=== PATIENT | female | born 1960 | race Caucasian/White ===

== ENCOUNTER → 2016-12-27 | Outpatient (CLI) | payer OTHER ==
[~2016-12-27] MED LIST: BUPIVACAINE 0.25% 30 ML SDV ONE
== END ==
LOC: FIMAGING 08:36
PROVIDERS: ATTEND Radiology Diagnostic Radiology
PROC: 3E023GC Introduction of Other Therapeutic Substance into Muscle, Percutaneous Approach (ICD-10-PCS; principal; 2016-12-27)
DX: M76.62 Achilles tendinitis, left leg (principal)

== ENCOUNTER → 2017-07-11 | Outpatient (CLI) | payer BC | LOC: BMCIMAGING 10:01 | PROVIDERS: ATTEND Obstetrics & Gynecology | DX: Z03.89 Encounter for observation for other suspected diseases and conditions ruled out (principal) | CPT/HCPCS: G0204 ==

== ENCOUNTER 2017-09-21 08:12 | Emergency (ER) | payer BC ==
[2017-09-21 08:17] VITALS: RESP 18
--- NOTE | 2017-09-21 08:30 | EDPHY ---
H & P Stated Complaint: cut middle left finger at 0715. Time Seen by Provider: 09/21/17 08:22 HPI/ROS: CHIEF COMPLAINT: Finger laceration HISTORY OF PRESENT ILLNESS: Patient is a 57-year-old healthy female who comes to the emergency department complaining of a laceration to her left middle finger. Distal to the PIP. No missing tissue. She tried using a bandaged home but it continues to ooze blood. She denies other injuries. She has not motion and function. She states that she reached down to bead picker a piece of broken glass and cut her finger. REVIEW OF SYSTEMS: Constitutional: denies: chills, fever, recent illness, recent injury EENTM: denies: blurred vision, double vision, nose congestion Respiratory: denies: cough, shortness of breath Cardiac: denies: chest pain, irregular heart rate, lightheadedness, palpitations Gastrointestinal/Abdominal: denies: abdominal pain, diarrhea, nausea, vomiting, blood streaked stools Genitourinary: denies: dysuria, frequency, hematuria, pain Musculoskeletal: denies: joint pain, muscle pain Skin: See HPI Neurological: denies: headache, numbness, paresthesia, tingling, dizziness, weakness Hematologic/Lymphatic: denies: blood clots, easy bleeding, easy bruising Immunologic/allergic: denies: HIV/AIDS, transplant EXAM: GENERAL: Well-appearing, well-nourished and in no acute distress. HEAD: Atraumatic, normocephalic. EYES: Pupils equal round and reactive to light, extraocular movements intact, sclera anicteric, conjunctiva are normal. ENT: TMs normal, nares patent, oropharynx clear without exudates. Moist mucous membranes. NECK: Normal range of motion, supple without lymphadenopathy or JVD. LUNGS: Breath sounds clear to auscultation bilaterally and equal. No wheezes rales or rhonchi. HEART: Regular rate and rhythm without murmurs, rubs or gallops. ABDOMEN: Soft, nontender, normoactive bowel sounds. No guarding, no rebound. No masses appreciated. BACK: No CVA tenderness, no spinal tenderness, step-offs or deformities EXTREMITIES: Normal range of motion, no pitting or edema. No clubbing or cyanosis. NEUROLOGICAL: Cranial nerves II through XII grossly intact. Normal speech, normal gait. 5/5 strength, normal movement in all extremities, normal sensation PSYCH: Normal mood, normal affect. SKIN: 1.5 cm laceration to the fat pad of the left middle finger. Mild bleeding. Source: Patient Exam Limitations: No limitations - Personal History Current Tetanus Diphtheria and Acellular Pertussis (TDAP): Yes Tetanus Vaccine Date: 2013 - Medical/Surgical History Hx Asthma: No Hx Chronic Respiratory Disease: No Hx Diabetes: No Hx Cardiac Disease: No Hx Renal Disease: No Hx Cirrhosis: No Hx Alcoholism: No Hx HIV/AIDS: No Hx Splenectomy or Spleen Trauma: No Other PMH: PSH: B cateract; ovarian cyst removed; fibroids removed; sinus; colonoscopy lesions removed 08/2015. PMH: denies - Family History Significant Family History: No pertinent family hx - Social History Smoking Status: Never smoked Alcohol Use: Sober Drug Use: None Constitutional: Initial Vital Signs Temperature (C) 36.4 C 09/21/17 08:13 Heart Rate 92 09/21/17 08:13 Respiratory Rate 18 09/21/17 08:13 Blood Pressure 160/105 H 09/21/17 08:13 O2 Sat (%) 99 09/21/17 08:13 O2 Delivery Mode Room Air Allergies/Adverse Reactions: No Known Allergies Allergy (Unverified 04/04/14 13:43) Home Medications: Medication Instructions Recorded DULoxetine [Cymbalta 60 MG (*)] 90 mg PO DAILY 10/25/15 Estradiol [Estrace Vaginal (*)] 1 gregg VAG DAILY 10/25/15 Ibuprofen [Motrin (*)] 400 mg PO DAILY PRN 10/25/15 Levothyroxine [Synthroid 125 mcg 125 mcg PO DAILY06 10/25/15 (*)] Progesterone, Micronized 200 mg PO DAILY 10/25/15 [Progesterone] Cholecalciferol (Vitamin D3) 5,000 unit PO DAILY 03/12/16 [Vitamin D3] Herbals/Supplements -Info Only 1 ea PO DAILY 03/12/16 Multivitamins [Multivitamin (*)] 1 tab PO DAILY 03/12/16 Loperamide HCl [Imodium 2 mg (*)] 2 mg PO QID PRN #10 cap 03/14/16 levOFLOXACIN [levAQUIN (*)] 500 mg PO DAILY #5 tab 03/14/16 Medical Decision Making Procedures: Procedure: Laceration repair. Verbal consent was obtained from the patient. The 1.5 cm finger laceration was anesthetized with 0.5% bupivacaine digital block. The wound was irrigated copiously according to protocol, draped and explored to its base. It was approximately 1/2 cm deep. There were no deep structures involved. No tendon, nerve, or vascular injury was identified when explored through full range of motion. No foreign body was identified. The wound was repaired with 5.0 PDS, 3 sutures, interrupted. The wound repair was simple without wound margin revisement or multiple flap alignment. The procedure was performed by myself. A dressing was then placed with sterile gauze and bacitracin. ED Course/Re-evaluation: Patient tolerated the repair well. We discussed care of sutures and suture removal. She declines further workup or testing at this time. Differential Diagnosis: Partial list of the Differential diagnosis considered include but were not limited to; finger laceration, foreign body and although unlikely based on the history and physical exam, I also considered tendon injury, vascular injury, fracture. I discussed these differential diagnoses and the plan with the patient as well as the usual and expected course. The patient understands that the diagnosis is provisional and that in medicine we are not always correct and that further workup is often warranted. Usual and customary warnings were given. All of the patient's questions were answered. The patient was instructed to return to the emergency department should the symptoms at all worsen or return, otherwise to followup with the physician as we discussed. Departure - Departure Disposition: Home, Routine, Self-Care Clinical Impression: Laceration Condition: Fair Instructions: Finger Laceration (ED) Additional Instructions: Have your stitches removed in 7-10 days Referrals: Ryan Bailey MD [Primary Care Provider] - As per Instructions
[2017-09-21 10:10] VITALS: BP 132/65; PULSE 74; TEMP 98.2; O2SAT 96
== END 2017-09-21 10:10 | disposition home or self-care (01) ==
PROC: 0HQGXZZ Repair Left Hand Skin, External Approach (ICD-10-PCS; principal; 2017-09-21)
DX: S61.213A Laceration without foreign body of left middle finger without damage to nail, initial encounter (principal); W25.XXXA Contact with sharp glass, initial encounter

== ENCOUNTER 2018-07-21 13:43 | Emergency (ER) | payer BC, OTHER ==
--- NOTE | 2018-07-21 15:06 | EDPHY ---
H & P Stated Complaint: left ankle pain/swelling, fell 2 weeks ago Time Seen by Provider: 07/21/18 14:53 HPI/ROS: CHIEF COMPLAINT: Left ankle pain and weakness HISTORY OF PRESENT ILLNESS: The patient is a 57-year-old female who comes to the emergency department complaining of left ankle and low back pain. She has a history of chronic low back pain and has an MRI from 2014 that showed L4-5 right disc protrusion. She states that this was treated with steroid injections and physical therapy no surgery. She improved significantly until this summer when she was working in [place] and had a job where she had to sit a lot. While she was there she began noticing about 2 months ago that she had some left-sided foot drop and stumbling over her left foot. Then about 2 weeks ago she stumbled to the point where she twisted her ankle and fell to the ground. She had increased back pain at that point and visit a doctor there who put her on muscle relaxants. She also complains of mild lateral ankle pain. She did not have any x-rays done at the time. No fevers or recent illness. She states that she was incontinent 2 nights ago of a small amount of stool and that she drip urine when she coughs or sneezes. No saddle anesthesia. No radiation of the pain down her leg. She arrived back in [place] 2 days ago and has been basically icing her back and ankle ever since. Severity: Moderate Modifying factors: Walking REVIEW OF SYSTEMS: Constitutional: denies: chills, fever, recent illness, recent injury EENTM: denies: blurred vision, double vision, nose congestion Respiratory: denies: cough, shortness of breath Cardiac: denies: chest pain, irregular heart rate, lightheadedness, palpitations Gastrointestinal/Abdominal: denies: abdominal pain, diarrhea, nausea, vomiting, blood streaked stools Genitourinary: denies: dysuria, frequency, hematuria, pain Musculoskeletal: See HPI Skin: denies: lesions, rash, jaundice, bruising Neurological: denies: headache, numbness, paresthesia, tingling, dizziness, weakness Hematologic/Lymphatic: denies: blood clots, easy bleeding, easy bruising Immunologic/allergic: denies: HIV/AIDS, transplant 10 systems reviewed and negative except as noted EXAM: GENERAL: Well-appearing, well-nourished and in no acute distress. HEAD: Atraumatic, normocephalic. EYES: Pupils equal round and reactive to light, extraocular movements intact, sclera anicteric, conjunctiva are normal. ENT: TMs normal, nares patent, oropharynx clear without exudates. Moist mucous membranes. NECK: Normal range of motion, supple without lymphadenopathy or JVD. LUNGS: Breath sounds clear to auscultation bilaterally and equal. No wheezes rales or rhonchi. HEART: Regular rate and rhythm without murmurs, rubs or gallops. ABDOMEN: Soft, nontender, normoactive bowel sounds. No guarding, no rebound. No masses appreciated. BACK: No CVA tenderness, no spinal tenderness, step-offs or deformities EXTREMITIES: Normal range of motion, no pitting or edema. No clubbing or cyanosis. Pain to the left lateral malleolus. Moderate swelling. NEUROLOGICAL: Patient cannot fully dorsiflex her left foot. The right foot is baseline. Also limited plantar flexion. Cranial nerves II through XII grossly intact. Normal speech, normal gait. 5/5 strength, normal movement in all extremities, normal sensation, normal reflexes PSYCH: Normal mood, normal affect. SKIN: Warm, dry, normal turgor, no visible rashes or lesions. Source: Patient Exam Limitations: No limitations - Personal History Tetanus Vaccine Date: 2013 - Medical/Surgical History Hx Asthma: No Hx Chronic Respiratory Disease: No Hx Diabetes: No Hx Cardiac Disease: No Hx Renal Disease: No Hx Cirrhosis: No Hx Alcoholism: No Hx HIV/AIDS: No Hx Splenectomy or Spleen Trauma: No Other PMH: PSH: B cateract; ovarian cyst removed; fibroids removed; sinus; colonoscopy lesions removed 08/2015. PMH: denies - Family History Significant Family History: No pertinent family hx - Social History Smoking Status: Never smoked Alcohol Use: Sober Drug Use: None Constitutional: Initial Vital Signs Temperature (C) 36.7 C 07/21/18 13:52 Heart Rate 106 H 07/21/18 13:52 Respiratory Rate 18 07/21/18 13:52 Blood Pressure 132/97 H 07/21/18 13:52 O2 Sat (%) 95 07/21/18 13:52 O2 Delivery Mode Room Air Allergies/Adverse Reactions: No Known Allergies Allergy (Verified 07/21/18 13:51) Home Medications: Medication Instructions Recorded DULoxetine [Cymbalta 60 MG (*)] 90 mg PO DAILY 10/25/15 Estradiol [Estrace Vaginal (*)] 1 gregg VAG DAILY 10/25/15 Ibuprofen [Motrin (*)] 400 mg PO DAILY PRN 10/25/15 Levothyroxine [Synthroid 125 mcg 125 mcg PO DAILY06 10/25/15 (*)] Progesterone, Micronized 200 mg PO DAILY 10/25/15 [Progesterone] Cholecalciferol (Vitamin D3) 5,000 unit PO DAILY 03/12/16 [Vitamin D3] Herbals/Supplements -Info Only 1 ea PO DAILY 03/12/16 Multivitamins [Multivitamin (*)] 1 tab PO DAILY 03/12/16 Loperamide HCl [Imodium 2 mg (*)] 2 mg PO QID PRN #10 cap 03/14/16 methylPREDNISolone [Medrol Dose 1 each PO AD #1 ea 07/21/18 Angel] Medical Decision Making - Diagnostics Imaging Results: Imaging Impressions Ankle X-Ray 07/21/18 14:35 Impression: Negative. No acute fracture. Lumbar Spine MRI 07/21/18 15:01 Impression: 1. L4-L5: Mild central canal stenosis, moderate right neural foraminal stenosis , and mild left neural foraminal stenosis secondary to severe degenerative disk disease, circumferential disk bulge, right far lateral disk herniation, protrusion, and moderate bilateral facet arthropathy. 2. L3-L4: Mild central canal stenosis and mild bilateral neural foraminal stenosis secondary to moderate degenerative disk disease with circumferential disk bulge and mild bilateral facet arthropathy. 3. Please see above findings at specific disk levels. Findings and recommendations discussed with Emergency Department physician, Jamil Webber, at 1635 hours, 07/21/2018. Final report concurs with initial preliminary interpretation. Imaging: Discussed imaging studies w/ break up worker Radiologist Procedures: Procedure: Splint placement. A Clymer boot splint was applied. After application of the splint I returned and re-examined the patient. The splint was adequately immobilizing the joint and distal to the splint the patient's circulation and sensation was intact. ED Course/Re-evaluation: We discussed the patient's MRI results which are not significantly different from previous. I had her walk. She is able to stand on her Tippy toes and lift her toes off the ground but she states that her foot feels slightly numb. I recommended admission to the hospital since she had incontinence. She states that the small amount of stool was only once about a week ago and that the urine is only when she coughs or laughs. She does not wish to stay in the hospital. She goes to orthopedics spine Dr. Suarez. I have paged their office. 5:35 p.m. I discussed the case with Dr. Suarez. She recommended a steroid taper and follow up with the patient on Monday. Patient is happy with this and declines admission. We discussed indications for returning. She was also placed in a brace for her left ankle sprain. Differential Diagnosis: Partial list of the Differential diagnosis considered include but were not limited to; the cauda equina, radiculopathy, ankle sprain, ankle fracture and although unlikely based on the history and physical exam, I also considered cancer, infection,. I discussed these differential diagnoses and the plan with the patient as well as the usual and expected course. The patient understands that the diagnosis is provisional and that in medicine we are not always correct and that further workup is often warranted. Usual and customary warnings were given. All of the patient's questions were answered. The patient was instructed to return to the emergency department should the symptoms at all worsen or return, otherwise to followup with the physician as we discussed. - Data Points Medications Given: Discontinued Medications Prednisone (Prednisone) 60 mg PO EDNOW ONE Stop: 07/21/18 17:42 Last Admin: 07/21/18 17:49 Dose: 60 mg Departure - Departure Disposition: Home, Routine, Self-Care Clinical Impression: Ankle sprain Qualifiers: Encounter type: initial encounter Involved ligament of ankle: unspecified ligament Laterality: left Qualified Code(s): S93.402A - Sprain of unspecified ligament of left ankle, initial encounter Low back pain Qualifiers: Chronicity: unspecified Back pain laterality: midline Sciatica presence: unspecified whether sciatica present Qualified Code(s): M54.5 - Low back pain Condition: Fair Instructions: Ankle Sprain (ED), Back Pain (ED) Additional Instructions: We spoke with Dr. Suarez would like to see you on Monday. Referrals: Freddie Saunders MD [Primary Care Provider] - As per Instructions Matilda Suarez [Medical Doctor] - As per Instructions Prescriptions: methylPREDNISolone [Medrol Dose Angel] 1 each PO AD #1 ea
[2018-07-21] MEDS ORDERED: predniSONE 20 MG TAB PO ONE (17:41)
[2018-07-21 17:58] VITALS: BP 166/114
== END 2018-07-21 17:57 | disposition home or self-care (01) ==
DX: S93.402A Sprain of unspecified ligament of left ankle, initial encounter (principal); X50.0XXA Overexertion from strenuous movement or load, initial encounter; Y99.8 Other external cause status; M54.5 Low back pain; G89.29 Other chronic pain; M48.061 Spinal stenosis, lumbar region without neurogenic claudication
CPT/HCPCS: J7512; L4386

== ENCOUNTER 2018-09-03 12:34 | Day surgery (SDC) | payer OTHER ==
[2018-09-03] MEDS ORDERED: LR 1,000 ML IV ONE (12:45)
[2018-09-03] MEDS ORDERED: MIDAZOLAM 2 MG/2 ML VIAL IVP ONE (13:29)
[2018-09-03] MEDS ORDERED: INDOMETHACIN 50 MG SUPP PR PRN (13:29)
--- NOTE | 2018-09-03 13:29 | PDGENHP ---
History & Physical Chief Complaint: hx of polyps History of Present Illness: 58 year old female presents for surveillance of complex polyps Pertinent Past, Social, Family History: PSurghx: sinus surgery, ovarian cyst. PMHx: Hypothyroid. FaMHx: prostate cancer Relevant Physical Exam: HEENT: anicteric. Cv: RRR +s1s2. lungs: CTAB No w/r/ r. Abd: soft, nt, + Bs Cardiorespiratory Assessment: ASA 2
[2018-09-03] MEDS ORDERED: DEXAMETHASONE 4 MG/ML VIAL IVP PRN (13:30)
[2018-09-03] MEDS ORDERED: fentaNYL 100 MCG/2 ML INJ IVP PRN (13:30)
[2018-09-03] MEDS ORDERED: NS 500 ML IV SCH (13:30)
[2018-09-03] MEDS ORDERED: NALOXONE HCL 0.4 MG/ML INJ IVP PRN (13:30)
[2018-09-03] MEDS ORDERED: ONDANSETRON 4 MG/2 ML VIAL IVP PRN (13:30)
--- NOTE | 2018-09-03 13:30 | PDANEPAE ---
ANE History of Present Illness abnormal colonoscopy, here for screening ANE Past Medical History - Cardiovascular History Hx Hypertension: No Hx Arrhythmias: No Hx Chest Pain: No Hx Coronary Artery / Peripheral Vascular Disease: No Hx CHF / Valvular Disease: No Hx Palpitations: No - Pulmonary History Hx COPD: No Hx Asthma/Reactive Airway Disease: No Hx Recent Upper Respiratory Infection: No Hx Oxygen in Use at Home: No Hx Sleep Apnea: No Sleep Apnea Screening Result - Last Documented: Negative - Neurologic History Hx Cerebrovascular Accident: No Hx Seizures: No Hx Dementia: No - Endocrine History Hx Diabetes: No Endocrine History Comment: hypothyroidism - Renal History Hx Renal Disorders: No - Liver History Hx Hepatic Disorders: No - Neurological & Psychiatric Hx Hx Neurological and Psychiatric Disorders: Yes Neurological / Psychiatric History Comment: depression - Cancer History Hx Cancer: No - Congenital Disorder History Hx Congenital Disorders: No - GI History Hx Gastrointestinal Disorders: Yes Gastrointestinal History Comment: reflux. PRE CANCEROUS LESION IN COLON. hx of colonoscopy with [facility] 04/2016 - Other Health History Other Health History: none - Chronic Pain History Chronic Pain: No - Surgical History Prior Surgeries: 05/02/16 colonscopy with Ambar. 04/08/14 hysteroscopy, polypectomy with Dr. Sky. REMVL RIGHT AND LEFT CATARACT IN 2013 & 2014. LT VARICOSE VEIN LIGATION 16 YRS AGO. TONSILLECTOMY 48 YRS AGO ANE Review of Systems Review of Systems: - Exercise capacity METS (RN): 4 METS ANE Patient History - Allergies Allergies/Adverse Reactions: No Known Allergies Allergy (Verified 08/06/18 11:06) - Home Medications Home Medications: DULoxetine [Cymbalta 60 MG (*)] 10/25/15 [Last Taken 09/02/18] Estradiol [Estrace Vaginal (*)] 10/25/15 [Last Taken 09/02/18] Levothyroxine [Synthroid 125 mcg (*)] 10/25/15 [Last Taken 09/02/18] Progesterone, Micronized [Progesterone] 10/25/15 [Last Taken 09/02/18] Herbals/Supplements -Info Only 03/12/16 [Last Taken 08/27/18] - NPO status NPO Since - Liquids (Date): 09/03/18 NPO Since - Liquids (Time): 09:00 NPO Since - Solids (Date): 09/02/18 NPO Since - Solids (Time): 08:00 - Smoking Hx Smoking Status: Never smoked - Family Anes Hx Family Hx Anesthesia Complications: none ANE Labs/Vital Signs - Vital Signs Blood Pressure: 155/109 Heart Rate: 84 Respiratory Rate: 12 O2 Sat (%): 95 Height: 167.64 cm Weight: 63.503 kg ANE Physical Exam - Airway Neck exam: FROM Mallampati Score: Class 1 Mouth exam: normal dental/mouth exam - Pulmonary Pulmonary: no respiratory distress - Cardiovascular Cardiovascular: regular rate and rhythym - ASA Status ASA Status: II (extremly nervous) ANE Anesthesia Plan Anesthesia Plan: GA with mask
[2018-09-03] MEDS ORDERED: MIDAZOLAM 2 MG/2 ML VIAL ONE (13:32)
[2018-09-03] MEDS ORDERED: LIDOCAINE 2% 100 MG/5 ML SYR ONE (13:36)
[2018-09-03] MEDS ORDERED: fentaNYL 100 MCG/2 ML INJ ONE (13:36)
[2018-09-03] MEDS ORDERED: PROPOFOL/EMULSION 500 MG/50 ML BOTTLE IV ONE (13:37)
--- NOTE | 2018-09-03 14:25 | GIREPORT ---
[facility] - Endoscopy Department Patient Name: Jessica Ariza Procedure Date: 09/03/2018 1:12 PM Patient Type: Outpatient Attending MD/ ER Physician: Roe Villalta MD Procedure: Colonoscopy Indications: High risk colon cancer surveillance: Personal history of colonic polyps Patient Profile: 58 year old female with a personal history of polyps presents for surveillance colonoscopy. Providers: Roe Villalta MD Medicines: Monitored Anesthesia Care Complications: No immediate complications. Estimated blood loss: Minimal. Description of Procedure: After obtaining informed consent, the scope was passed under direct vis ion. Throughout the procedure, the patient's blood pressure, pulse, and oxyg en saturations were monitored continuously. The Colonoscope with irrigatio n channel was introduced through the anus and advanced to the cecum, identified by appendiceal orifice and ileocecal valve. The colonoscopy was performed without difficulty. The patient tolerated the procedure well. The quality of the bowel preparation was good. The ileocecal valve, appendi ceal orifice, and rectum were photographed. Findings: The perianal and digital rectal examinations were normal. Pertinent negatives include no palpable rectal lesions. A 4 mm polyp was found in the descending colon. The polyp was sessile. The polyp was removed with a cold snare. Resection and retrieval were compl ete. Two sessile polyps were found in the transverse colon. The polyps were 2 to 3 mm in size. These polyps were removed with a cold biopsy forceps. Resection and retrieval were complete. Estimated Blood Loss: Estimated blood loss was minimal. Post Op Diagnosis: - One 4 mm polyp in the descending colon, removed with a cold snare. Resected and retrieved. - Two 2 to 3 mm polyps in the transverse colon, removed with a cold bio psy forceps. Resected and retrieved. Recommendation: - Discharge patient to home (with escort). - Resume previous diet. - Continue present medications. - Repeat colonoscopy in 3 years for surveillance. - Await pathology results. - Thank you for allowing me to participate in the care of your patient. Attending Participation: I personally performed the entire procedure. Roe Villalta MD Roe Villalta MD 09/03/2018 2:25:08 PM This report has been signed electronicallyRoe Villalta MD Number of Addenda: 0 Note Initiated On: 09/03/2018 1:12 PM Total Procedure Duration Time 0 hours 26 minutes 34 seconds [email or web address]
[2018-09-03 15:24] VITALS: BP 143/103
--- NOTE | 2018-09-03 15:25 | POSTANESTH ---
Post Anesthetic Evaluation Cardiovascular Status: Normal, Stable Respiratory Status: Normal, Stable Level of Consciousness/Mental Status: Can Participate in Eval Pain Control: Adequate, Prn Tx Ordered Nausea/Vomiting Control: Adequate, Prn Tx Ordered Complications Possibly Related to Anesthesia: None Noted (seen prior to dc. no questions or complaints)
== END 2018-09-03 15:43 | disposition home or self-care (01) ==
LOC: FSGY 12:34
PROVIDERS: ATTEND Internal Medicine Gastroenterology
DX: Z12.11 Encounter for screening for malignant neoplasm of colon (principal); D12.3 Benign neoplasm of transverse colon; K63.5 Polyp of colon; E03.9 Hypothyroidism, unspecified; Z86.010 Personal history of colon polyps
CPT/HCPCS: J2001; J2250; J2704; J3010

== ENCOUNTER → 2018-11-07 | Outpatient (CLI) | payer OTHER | END | disposition home or self-care (01) | LOC: BMCIMAGING 08:40 | PROVIDERS: ATTEND Obstetrics & Gynecology | DX: Z12.31 Encounter for screening mammogram for malignant neoplasm of breast (principal) ==

== ENCOUNTER → 2019-01-30 | Outpatient (CLI) | payer OTHER | LOC: FIMAGING 09:50 | PROVIDERS: ATTEND Physical Medicine & Rehabilitation | DX: M47.814 Spondylosis without myelopathy or radiculopathy, thoracic region (principal) ==

== ENCOUNTER → 2019-02-20 | Outpatient (CLI) | payer OTHER | LOC: FIMAGING 09:11 | PROVIDERS: ATTEND Physical Medicine & Rehabilitation | DX: Z03.89 Encounter for observation for other suspected diseases and conditions ruled out (principal); M47.814 Spondylosis without myelopathy or radiculopathy, thoracic region; E07.9 Disorder of thyroid, unspecified; Z78.0 Asymptomatic menopausal state; Z79.890 Hormone replacement therapy ==